=== PATIENT | female | born 1995 | race Hispanic/Latino ===

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

== ENCOUNTER 2017-02-02 20:03 | Emergency (ER) | payer OTHER ==
[~2017-02-02] VITALS: Ht 157.5 cm; Wt 56.2 kg
[~2017-02-02 20:03] MED LIST changes: +ZOFRAN ODT4 MG PO
[2017-02-02 22:57] LABS: ADD MIUA? YES; BILIRUBIN NEGATIVE; BLOOD NEGATIVE; COLOR YELLOW ((YELLOW)); GLUCOSE (STRIP) NEGATIVE; KETONES NEGATIVE; LEUKOCYTES NEGATIVE; NITRITE NEGATIVE; PROTEIN (STRIP) NEGATIVE; SPECIFIC GRAVITY 1.017 (1.000-1.030); UROBILINOGEN 0.2 MG/DL (0.2-1.0)
[2017-02-02 23:12] LABS: BACTERIA 1+ /HPF; EPITHELIAL CELLS RARE /HPF; MUCUS TRACE /LPF; RED BLOOD CELLS 0-5 /HPF (0-5); UCUL ADDED? NO; WHITE BLOOD CELLS 0-5 /HPF (0-5)
[2017-02-02] MEDS ORDERED: CLARITIN10 M3 PO (23:41)
[2017-02-02] MEDS ORDERED: AMOXICILLIN500 M1 PO (23:41)
[2017-02-02 23:58] VITALS: BP 118/67
== END 2017-02-02 23:59 | disposition home or self-care (01) ==
LOC: EME 20:03
PROVIDERS: Physician Assistant
DX: J06.9 Acute upper respiratory infection, unspecified (principal); J32.9 Chronic sinusitis, unspecified
CPT/HCPCS: 76805; 81003; 87651 90; 99281; 99283; Q0169

== ENCOUNTER 2017-06-24 07:56 | Inpatient (IN) | payer OTHER ==
[~2017-06-24] VITALS: Ht 154.9 cm; Wt 61.0 kg
[2017-06-24] VITALS (18 sets, daily range): BP systolic 115–153; BP diastolic 56–78
[~2017-06-24 07:56] MED LIST changes: +AMOXICILLIN500 M1 PO; +CLARITIN10 M3 PO
[2017-06-24 10:25] LABS: BASOPHIL (%) 0.4 % (0-1); EOSINOPHIL (%) 0.3 % (0-5); HEMATOCRIT 33.1 % (36.0-46.0); HEMOGLOBIN 10.4 G/DL (11.9-15.5); IMMATURE GRANULOCYTE (%) 0.4 % (0.0-0.7); LYMPHOCYTE (%) 11.3 % (15-42); LYMPHOCYTE COUNT 1.2 K/uL (1.0-2.8); MCH 23.7 PG (29.0-34.0); MCHC 31.4 G/DL (30.0-36.0); MCV 75.4 FL (83-99); MONOCYTE (%) 6.8 % (3-12); MONOCYTE COUNT 0.8 K/uL (0-0.8); NEUTROPHIL (%) 80.8 % (45-76); NEUTROPHIL COUNT 8.9 K/uL (1.8-6.4); PLATELET COUNT 312 K/uL (156-360); RBC DIS.WIDTH-CV 15.9 % (11.8-14.6); RBC DIS.WIDTH-SD 42.5 % (39-53); RED BLOOD COUNT 4.39 M/uL (3.80-5.20)
[2017-06-24 12:15] LABS: HEMOGLOBIN A1c (GLYCOHEMOGLOB) 5.1 % (Below 5.7)
[2017-06-25] VITALS (18 sets, daily range): BP systolic 108–135; BP diastolic 57–81
[2017-06-26 07:07] LABS: BASOPHIL (%) 0.2 % (0-1); EOSINOPHIL (%) 0.6 % (0-5); EOSINOPHIL COUNT 0.1 K/uL (0-0.3); HEMATOCRIT 30.7 % (36.0-46.0); HEMOGLOBIN 9.3 G/DL (11.9-15.5); IMMATURE GRANULOCYTE (%) 0.5 % (0.0-0.7); LYMPHOCYTE (%) 10.5 % (15-42); LYMPHOCYTE COUNT 1.4 K/uL (1.0-2.8); MCH 23.4 PG (29.0-34.0); MCHC 30.3 G/DL (30.0-36.0); MCV 77.3 FL (83-99); MONOCYTE (%) 9.2 % (3-12); MONOCYTE COUNT 1.2 K/uL (0-0.8); NEUTROPHIL COUNT 10.5 K/uL (1.8-6.4); PLATELET COUNT 241 K/uL (156-360); RBC DIS.WIDTH-CV 16.3 % (11.8-14.6); RBC DIS.WIDTH-SD 45.2 % (39-53); RED BLOOD COUNT 3.97 M/uL (3.80-5.20); WHITE BLOOD COUNT 13.3 K/uL (4.1-10.2)
[2017-06-26 15:31] VITALS: BP 106/66
[2017-06-26 23:00] VITALS: BP 123/67
[2017-06-27] MEDS ORDERED: IBUPROFEN800 MG PO (09:26)
[2017-06-27] MEDS ORDERED: Tylenol Extra Streng PO (09:42)
== END 2017-06-27 11:05 | disposition home or self-care (01) | DRG 775 ==
LOC: LDRP-OP 07:56 → 2WEST 07:57 → LDRP-OP 07-22 08:49
PROVIDERS: Advanced Practice Midwife
DX: O70.1 Second degree perineal laceration during delivery (principal); O69.81X0 Labor and delivery complicated by cord around neck, without compression, not applicable or unspecified; O99.824 Streptococcus B carrier state complicating childbirth; O99.02 Anemia complicating childbirth; D62 Acute posthemorrhagic anemia; Z3A.40 40 weeks gestation of pregnancy; Z37.0 Single live birth
CPT/HCPCS: 83036; 85025; C1755; G0378; J0595; J2405; J2540; J3010; J7120